=== PATIENT | male | born 1985 | race Caucasian/White ===

== ENCOUNTER → 2016-08-05 | Outpatient (CLI) | payer BC ==
--- NOTE | 2016-08-05 14:56 | Diagnostic Imaging Report ---
INDICATION: Heart palpitations. PA and lateral chest obtained at 2:56 p.m. FINDINGS: Heart and mediastinal silhouette are normal in appearance. The lungs are clear. There is no pneumothorax or pleural fluid. IMPRESSION: Negative chest. Dictated by: Dictated on workstation # [id number]
[2016-08-05 15:03] LABS: MEAN PLATELET VOLUME 9.2 FL (7.4-10.4); RED BLOOD COUNT 5.19 10^6/uL (4.35-5.85); RED CELL DISTRIBUTION WIDTH 12.2 % (10.0-14.5); WHITE BLOOD COUNT 8.7 10^3/uL (4.3-11.0)
[2016-08-05 15:23] LABS: ALBUMIN 4.7 G/DL (3.2-4.5); BILIRUBIN,TOTAL 0.5 MG/DL (0.1-1.0); CALCIUM 9.2 MG/DL (8.5-10.1); CREATININE SERUM 1.52 MG/DL (0.60-1.30); POTASSIUM 3.7 MMOL/L (3.6-5.0); TOTAL PROTEIN 7.4 G/DL (6.4-8.2)
== END ==
LOC: RAD 14:25
PROVIDERS: ATTEND Internal Medicine Cardiovascular Disease
DX: R00.2 Palpitations (principal)
CPT/HCPCS: 36415; 71020; 80053; 85027

== ENCOUNTER → 2016-10-13 | Outpatient (CLI) | payer BC ==
--- NOTE | 2016-10-13 12:18 | Diagnostic Imaging Report ---
Indication: Left scrotal pain. Comparison: None. Discussion: Sonographic evaluation of the scrotum was performed. The testicles appear normal and symmetric in echotexture and size bilaterally with normal color and spectral Doppler blood flow. The right testicle measures 4.9 x 2.4 x 3.1 cm. Left testicle measures 4.5 x 2.5 x 3.2 cm. The epididymides are unremarkable. Small bilateral hydroceles are noted. No varicocele. Scrotal wall is unremarkable. Impression: 1. Small bilateral hydroceles. No acute abnormality otherwise identified. Dictated by: Dictated on workstation # [id number]
== END ==
LOC: RAD 10:49
PROVIDERS: ATTEND Urology
DX: N43.3 Hydrocele, unspecified (principal); N45.1 Epididymitis
CPT/HCPCS: 76870

== ENCOUNTER → 2020-04-11 | Outpatient (CLI) | payer BC ==
--- NOTE | 2020-04-11 09:45 | Diagnostic Imaging Report ---
INDICATION: Pelvic pain. Time of exam 9:36 AM Single AP view of the pelvis demonstrates normal femoral acetabular alignment. Both femoral heads and necks appear to be intact. Joint spaces are maintained. No fractures are seen. Rami are intact. SI joints and symphysis are unremarkable. IMPRESSION: No acute bony abnormality is detected. Dictated by: Dictated on workstation # [id number]
--- NOTE | 2020-04-11 09:49 | Diagnostic Imaging Report ---
INDICATION: Low back pain. Time of exam 9:35 AM Frontal and lateral views lumbar spine were obtained. Curvature and alignment is normal. Vertebral body heights and disc spaces are well-maintained. No fracture or subluxation is identified. IMPRESSION: No acute bony abnormality is detected. Dictated by: Dictated on workstation # [id number]
== END ==
LOC: RAD 09:24
PROVIDERS: ATTEND Chiropractor
DX: M54.17 Radiculopathy, lumbosacral region (principal); M99.03 Segmental and somatic dysfunction of lumbar region; M99.04 Segmental and somatic dysfunction of sacral region
CPT/HCPCS: 72100; 72170